=== PATIENT | female | born 1950 | race Caucasian/White ===

== ENCOUNTER 2019-08-10 09:07 | Outpatient (CLI) | payer MEDICARE, SELFPAY ==
--- NOTE | ~2019-08-10 | MM_ITS ---
EXAMINATION: MM screening michell BI w edy HISTORY: Screening mammogram TECHNIQUE: Craniocaudal and mediolateral oblique 3-D tomosynthesis images were obtained and synthetic 2-D images were generated. CAD analysis was submitted and interpreted. COMPARISON: 08/03/2018 bilateral digital screening mammogram 07/28/2017 right screening and left diagnostic mammogram and limited left breast ultrasound 07/22/2016 bilateral digital screening mammogram BREAST PARENCHYMAL COMPOSITION: The breasts are almost entirely fatty. FINDINGS: There is no evidence of suspicious mass, calcification, or architectural distortion to sugg est malignancy in either breast. There has been no suspicious interval change. IMPRESSION: 1. No mammographic evidence of malignancy. 2. Recommend routine screening mammography in one year. BI-RADS Category 1: Negative Reviewed, dictated and finalized at location A. 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
== END 2019-08-10 09:08 | disposition home or self-care (01) ==
LOC: ANHIMG 09:12
PROVIDERS: PCP Internal Medicine; Visit Provider Internal Medicine
DX: Z12.31 Encounter for screening mammogram for malignant neoplasm of breast (principal)
CPT/HCPCS: 77063; 77067

== ENCOUNTER 2020-08-17 09:06 | Outpatient (CLI) | payer MEDICARE, SELFPAY ==
--- NOTE | ~2020-08-17 | MM_ITS ---
EXAMINATION: MM screening michell BI w edy HISTORY: Screening mammogram, family history of breast cancer in her mother. TECHNIQUE: Craniocaudal and mediolateral oblique 3-D tomosynthesis images were obtained and synthetic 2-D images were generated. CAD analysis was submitted and interpreted. COMPARISON: 08/10/2019, 08/03/2018, 07/28/2018, 07/22/2016 BREAST PARENCHYMAL COMPOSITION: The breasts are almost entirely fatty. FINDINGS: There is no evidence of suspicious mass, calcification, or architectural distortion to sugg est malignancy in either breast. There has been no suspicious interval change. IMPRESSION: 1. No mammographic evidence of malignancy. 2. Recommend routine screening mammography in one year. BI-RADS Category 1: Negative Reviewed, dictated and finalized at location A. 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
== END 2020-08-17 09:07 | disposition home or self-care (01) ==
LOC: ANHIMG 09:09
PROVIDERS: PCP Internal Medicine; Visit Provider Internal Medicine
DX: Z12.31 Encounter for screening mammogram for malignant neoplasm of breast (principal)
CPT/HCPCS: 77063; 77067

== ENCOUNTER 2021-10-01 10:10 | Outpatient (CLI) | payer MEDICARE, SELFPAY ==
--- NOTE | ~2021-10-01 | MM_ITS ---
EXAMINATION: MM screening michell BI w edy HISTORY: Screening mammogram TECHNIQUE: Craniocaudal and mediolateral oblique 3-D tomosynthesis images were obtained and synthetic 2-D images were generated. CAD analysis was submitted and interpreted. COMPARISON: August 17, 2020, August 10, 2019, August 03, 2018 bilateral screening mammogram examin ations BREAST PARENCHYMAL COMPOSITION: The breasts are almost entirely fatty. FINDINGS: There is no evidence of suspicious mass, calcification, or architectural distortion to sugg est malignancy in either breast. There has been no suspicious interval change. IMPRESSION: 1. No mammographic evidence of malignancy. 2. Recommend routine screening mammography in one year. BI-RADS Category 1: Negative Reviewed, dictated and finalized at location A.
== END 2021-10-01 10:11 | disposition home or self-care (01) ==
LOC: ANHIMG 10:11
PROVIDERS: PCP Internal Medicine; Visit Provider Internal Medicine
DX: Z12.31 Encounter for screening mammogram for malignant neoplasm of breast (principal)
CPT/HCPCS: 77063; 77067

== ENCOUNTER 2022-10-02 16:36 | Outpatient (CLI) | payer MEDICARE, SELFPAY ==
--- NOTE | ~2022-10-02 | MM_ITS ---
EXAMINATION: MM screening michell BI w edy HISTORY: Screening TECHNIQUE: Craniocaudal and mediolateral oblique 3-D tomosynthesis images were obtained and synthetic 2-D images were generated. CAD analysis was submitted and interpreted. COMPARISON: Comparison to multiple prior studies sequentially, with oldest reviewed study dated 07/22. BREAST PARENCHYMAL COMPOSITION: The breasts are almost entirely fatty. FINDINGS: There is no evidence of suspicious mass, calcification, or architectural distortion to sugg est malignancy in either breast. There has been no suspicious interval change. IMPRESSION: 1. No mammographic evidence of malignancy. 2. Recommend routine screening mammography in one year. BI-RADS Category 1: Negative Reviewed, dictated and finalized at location A.
== END 2022-10-02 16:37 | disposition home or self-care (01) ==
LOC: ANHIMG 16:38
PROVIDERS: PCP Internal Medicine; Visit Provider Internal Medicine
DX: Z12.31 Encounter for screening mammogram for malignant neoplasm of breast (principal)
CPT/HCPCS: 77063; 77067

== ENCOUNTER 2023-11-10 15:17 | Outpatient (CLI) | payer MEDICARE, SELFPAY ==
--- NOTE | ~2023-11-10 | MM_ITS ---
EXAMINATION: MM screening michell BI w edy HISTORY: Screening mammogram TECHNIQUE: Craniocaudal and mediolateral oblique 3-D tomosynthesis images were obtained and synthetic 2-D images were generated. CAD analysis was submitted and interpreted. COMPARISON: 10/02/2022, 10/01/2021 bilateral screening mammogram examinations BREAST PARENCHYMAL COMPOSITION: The breasts are almost entirely fatty. FINDINGS: There is no evidence of suspicious mass, calcification, or architectural distortion to sugg est malignancy in either breast. There has been no suspicious interval change. IMPRESSION: 1. No mammographic evidence of malignancy. 2. Recommend routine screening mammography in one year. BI-RADS Category 1: Negative Reviewed, dictated and finalized at location A.
== END 2023-11-10 15:18 | disposition home or self-care (01) ==
PROVIDERS: PCP Internal Medicine; Visit Provider Family Medicine
DX: Z12.31 Encounter for screening mammogram for malignant neoplasm of breast (principal)
CPT/HCPCS: 77063; 77067

== ENCOUNTER 2024-11-18 09:57 | Outpatient (CLI) | payer MEDICARE, SELFPAY ==
--- NOTE | ~2024-11-18 | MM_ITS ---
EXAMINATION: MM screening michell BI w edy HISTORY: Screening TECHNIQUE: Craniocaudal and mediolateral oblique 3-D tomosynthesis images were obtained and synthetic 2-D images were generated. CAD analysis was submitted and interpreted. COMPARISON: Comparison to multiple prior studies sequentially, with oldest reviewed study dated 08/03. BREAST PARENCHYMAL COMPOSITION: Not dense: There are scattered areas of fibroglandular density. FINDINGS: There is no evidence of suspicious mass, calcification, or architectural distortion to sugg est malignancy in either breast. There has been no suspicious interval change. IMPRESSION: 1. No mammographic evidence of malignancy. 2. Recommend routine screening mammography in one year. BI-RADS Category 1: Negative Reviewed, dictated and finalized at location A.
--- OUTSIDE RECORDS SUMMARY | 2024-11-18 10:02 | XMS_ITS | Referral Summary ---
Author Organization [facility] al Address [address] [place] [address] Care Team Providers Care Sales Administrator Name Role Phone Jaz Palmer MD Primary Care Provider [phone] Allergies Active Allergy Reactions Criticality Noted Date Comments Cefuroxime Rash Medium 01/24/2011 Celecoxib Swelling Medium 12/30/2010 Other Other (See comments) Low 12/30/2010 Tetracycline Nausea & Vomiting Low 12/30/2010 Medications cholecalciferol (VITAMIN D-3) 2,000 unit tablet Take 1 tablet 3 times a week. Active rosuvastatin (CRESTOR) 20 mg tablet daily. Active metFORMIN (GLUCOPHAGE) 1,000 mg tablet Acti ve lisinopril (PRINIVIL,ZESTRI L) 20 mg tablet daily. 12/25/2016 Act rodger hydroCHLOROthiaz flor (MICROZIDE) 12.5 mg capsule daily. 12/25/2016 Act rodger aspirin 81 mg tablet Active ONETOUCH DELICA LANCETS 33 gauge misc USE TO CHECK BLOOD SUGAR ONCE DAILY DIRECTED. 1 12/02/2018 Active ONETOUCH ULTRA BLUE TEST STRIP strip TEST ONCE DAILY DIRECTED. 1 12/21/2018 Active metoprolol XL (TOPROL-XL) 50 mg 24 hr tablet TAKE 1 TABLET (50 MG TOTAL) BY MOUTH EVERY MORNING. 3 01/15/2019 Active glipiZIDE XL (GLUCOTROL XL) 5 mg 24 hr tablet Take 1 tablet (5 mg total) by mouth daily 03/03/2024 Active Active Problems Problem Noted Date Diagnosed Date Vitamin D deficiency 03/04/2022 Atypical chest pain 02/04/2021 History of melanoma in situ 01/01/2021 Uncontrolled type 2 diabetes mellitus with hyper glycemia 04/12/2019 Melanoma in situ right scapula(CMS/HCC) 12/25/19 19 Pancreas cyst 12/09/2017 Melanocytic nevi of trunk 11/17/2017 BMI 31.0-31.9,adult 10/16/2017 Fibroadenosis of left breast 07/22/2017 Renal mass 01/21/2017 Diabetes mellitus 12/25/2016 Hypertension 12/25/2016 Mild diastolic dysfunction 06/03/2016 Presence of stent in coronary artery 06/03/2016 Coronary artery disease invo lving [place] coronary artery of [place] heart without angina pectoris 03/26/2016 Hyperlipidemia, mixed 03/26/2016 Infectious warts 01/16/2015 Actinic keratosis 06/06/2014 Basal cell carcinoma (BCC) of back 06/06/2014 Skin neoplasm 05/02/2014 Lymphedema 05/24/2013 History of malignant melanoma of skin 01/04/2013 Malignant melanoma of skin 12/31/2010 Immunizations Immunization Administration Dates Next Due DTaP, Unspecified 06/18/2015 Influenza, Quadrivalent, Hig h Dose, Preservative Free, Intrr 06/19/2020 Influenza, Quadrivalent, Spl it, Preservative Free, Intramuscular 05/01/2023 Influenza, Trivalent, High D ose, Split, Preservative Free, Intramuscular 04/19/2018,04/17/2017 Influenza, Unspecified 04/12/2022,04/12/2019 Moderna SARS-CoV-2 Monovalent Vaccination (12+ Y RS) 09/12/2020,08/15/2020 Pneumococcal Conjugate PCV 13 07/30/2020 Pneumococcal Polysaccharide PPV23 08/05/2021 TD Preservative Free 01/01/2009 Tdap 06/18/2015 ZOSTER LIVE 06/05/2015 Social History Tobacco Use Types Packs/Day Years Used Date Smoking Tobacco: Never Smokeless Tobacco: Never Alcohol Use Standard Drinks/Week Comments No 0 (1 standard drink = 0.6 oz pur e alcohol) Comments Unknown Sex and Gender Information Value Date Recorded Sex Assigned at Not on file Legal Sex Female 6:45 AM INHALATION THERAPY AIDE Gender Identity Female 11/19/2019 7:01 PM CDT Sexual Orientation Straight 11/19/2019 7: 01 PM CDT Last Filed Vital Signs Vital Sign Reading Time Taken Comments Blood Pressure 148/69 03/28/2024 9:06 AM CDT Pulse 66 03/28/2024 9:06 AM CDT Temperature 36.1 C (97 F) 03/28/2024 9:06 AM CDT Respiratory Rate 14 03/28/2024 9:06 AM CDT Oxygen Saturation 99% 03/28/2024 9:06 AM CDT Inhaled Oxygen Concentration - - Weight 80.4 kg (177 lb 3.2 oz) 03/28/2024 9:06 A M CDT Height 162.6 cm (5' 4.03 ) 02/24/2022 9:44 AM CD T Body Mass Index 30.39 02/24/2022 9:44 AM CDT Plan of Treatment Not on file Procedures Procedure Name Priority Date/Time Associated Diagnosis Comments EGFR Routine 03/28/2024 7:32 AM CDT Malignant melanoma of skin (HCC) HEMOGLOBIN A1C After X-Ray 04/03/2017 11:43 PM CDT from Last 3 Months or Most Recently Relevant to Health Maintenance Results * eGFR (03/28/2024 7:32 AM CDT) eGFR >90 >=60 mL/min/1. 73 m2 Comment: Interpretive Data Reference Interval Normal >/= 90 mL/min/1.73m2 Mildly decreased* 60 - 89 mL/min/1.73m2 Mildly to moderately decreased 45 - 59 mL/min/1.73m2 Moderately to severely decreased 30 - 44 mL/min/1.73m2 Severely decreased 15 - 29 mL/min/1.73m2 Kidney Failure < 15 mL/min/1.73m2 *Relative to young adult level Estimated glomerular filtration rate is determined by the 2020 CKD-EPI equation recommended by the National Kidney Foundation (A Unifying Approach to GFR Estimation: Recommendations of the NKF-ASK Task Force on Reassessing the Inclusion of Race in Diagnosing Kidney Disease, JASN 202). The CKD-EPI equation should not be used for patients with unstable renal function and has not been validated in children and those over 70. Current interpretive data was last reviewed 2021. Testing performed by: [facility], [facility] [id number] Blood 03/28/2024 7:32 AM CDT 03/28/2024 7:37 AM CDT Derrek Johnson MD LAB BLOOD ORDERABLES Final Res ult Performing Organization Address [facility] [place] [address] * (ABNORMAL) Hemoglobin A1c (04/03/2017 11:43 PM CDT) Hgb A1C 6.2(H) 4.0 - 6.0 % [facility] Estimated Average Glucose 131 mg/dL [facility] Comment: The ADA recommends reporting an estimated Average Glucose (eAG) with all Hemoglobin A1c results using the equation derived from a study of 507 normal and diabetic adults. Minority populations were underrepresented and children were not included. (Diabetes Care 31:2299-6748, 2008). The eAG is not equivalent to a fasting glucose. Blood specimen (specimen) 04/03/2017 11:43 PM CDT 04/04/2017 12:17 AM CDT us Jimmie Stevens LAB BLOOD ORDERABLES Final Resul t Performing Organization Address [facility] de Phone Number [facility] [place] [address] from Last 3 Months or Most Recently Relevant to Health Maintenance Insurance MEDICARE [facility] [place] [id number] MEDICARE [facility] [place] [id number] MEDICARE [facility] Care Teams Sales Administrator Relationship Specialty [place] [address] [address] PCP - General Family Medicine 03/20/23
--- OUTSIDE RECORDS SUMMARY | 2024-11-18 10:02 | XMS_ITS | Clinical Summary ---
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 MANAGER Gender Identity Not on file Sexual Orientation Not on file Plan of Treatment Health Maintenance Due Date Last Done Comments DTAP/TDAP/TD VACCINES (1 - Tdap) 1970 BREAST CANCER SCREENING 1991 COLORECTAL SCREENING 1996 Colorectal Cancer Screening 1996 FIT-DNA Q 3 years 1996 FIT/FOBT Q 1 year 1996 Flex Sig/CT Colonography Q 5 years 1996 PNEUMOCOCCAL VACCINE 50+ YEARS (1 of 1 - PCV) 05/06/20 01 ZOSTER VACCINE (1 of 2) 2001 OSTEOPOROSIS SCREENING 2016 INFLUENZA VACCINE (#1) 2024 RSV VACCINE (60+ or ) (1 - 1-dose 75+ series) 2026 Insurance [employer] BLUE ACCESS/TRUE BLUE PPO Care Teams Career Technical Supervisor Relationship Specialty Start Date End Date Michele Greenwood MD PCP - General Internal Medicine 01/09/10
--- OUTSIDE RECORDS SUMMARY | 2024-11-18 10:02 | XMS_ITS | Encounter Summary ---
Author Organization [facility] Address [address] [place] [address] Phone Care Team Providers Care Registered Sales Assistant Name Role Phone Michele Greenwood MD Primary Care Provider Jaz Palmer MD Primary Care Provider [phone] Encounter Details Date Type Department Care Team (Latest Contact Info) Description 03/06/2011 Orders Only [facility]ETICS Scanning, Provider Social History Tobacco Use Types Packs/Day Years Used Date Smoking Tobacco: Never Assessed Comments Unknown Sex and Gender Information Value Date Recorded Sex Assigned at Not on file Legal Sex Female 6:45 AM COOKEE Gender Identity Female 11/19/2019 7:01 PM CDT Sexual Orientation Straight 11/19/2019 7: 01 PM CDT documented as of this encounter Plan of Treatment Not on file documented as of this encounter Procedures Procedure Name Priority Date/Time Associated Diagnosis Comments SCAN - PATHOLOGY 03/06/2011 documented in this encounter Results * SCAN - PATHOLOGY (03/06/2011) us Provider Scanning Final Result documented in this encounter Visit Diagnoses Not on filedocumented in this encounter Care Teams Registered Sales Assistant Relationship Specialty [place] [address] [place] [address] PCP - General 11/22/16 03/19/23 [place] [address] [place] [address] PCP - General Family Medicine 03/20/23 documented as of this encounter
--- OUTSIDE RECORDS SUMMARY | 2024-11-18 10:02 | XMS_ITS | Clinical Summary ---
Author Organization [facility] al Address [address] [place] [address] Care Team Providers Care Chemical Technician Name Role Phone Jaz Palmer MD Primary Care Provider Allergies Active Allergy Reactions Criticality Noted Date [...] artery 06/03/2016 Coronary artery disease invo lving [place] coronary artery of [place] heart without angina pectoris 03/26/2016 Hyperlipidemia, mixed [...] Free 01/01/2009 Tdap 06/18/2015 ZOSTER LIVE 06/05/2015 Surgical History Surgery Date Site/Laterality Comments ID APPENDECTOMY Appendectomy - (Added by TW Conv) ID DELIVERY ONLY Section - (Added by TW Conv) Medical History Medical History Date Comments Personal history of other ma lignant neoplasm of skin History of basal cell carcin justine of skin - (Added by TW Conv) Personal history of malignan t melanoma of skin History of malignant melanom a of skin - (Added by TW Conv) Personal history of malignan t melanoma of skin History of malignant melanom a of skin - (Added by TW Conv) Melanoma (HCC) Family History Medical History Relation Name Comments Breast cancer Mother Family history of malignant neoplasm of breast - (Added by TW Conv) Cancer Other 1 Family history of malignant neoplasm - (Added by TW Conv) Melanoma Other 2 Family history of malignant melanoma - (Added by TW Conv) Relation Name Status Comments Mother Other 1 Other 2 Social History Tobacco Use Types Packs/Day Years Used Date Smoking Tobacco: Never Smokeless Tobacco: Never Alcohol Use Standard Drinks/Week Comments No 0 (1 standard drink = 0.6 oz pur e alcohol) Comments Unknown Sex and Gender Information Value Date Recorded Sex Assigned at Not on file Legal Sex Female 6:45 AM PROGRESS CLERK Gender Identity Female 11/19/2019 7:01 PM CDT Sexual Orientation Straight 11/19/2019 7: 01 PM CDT Obstetrics History Last Filed Vital Signs Vital Sign Reading [...] 02/24/2022 9:44 AM CDT Plan of Treatment Health Maintenance Due Date Last Done Comments Albumin Creatinine Ratio, Urine 1951 Colon Cancer Screening-Colonoscopy 1951 Depression Screening 1951 Fall Risk Assessment 1950 Hepatitis C Screening 1951 Osteoporosis Screening-Bone Density Scan 1951 Dilated Eye Exam 1951 Foot Exam 1951 Hepatitis B Screening 1969 Zoster Vaccine (1 of 2) 07/31/2015 06/05/2015 Well Visit 65+ 2016 Hemoglobin A1C 10/01/2017 04/03/2017 Breast Cancer Screening-Mammogram 08/10/2020 020 Covid-19 Vaccine (2 5 season) 2024 06/26/2021, 09/12/2020, 08/15/2020 Lipid Panel 02/02/2025 02/03/2024, 04/10/2022 Influenza Vaccine (Season Ended) 2025 05/01/2023, 04/12/2022, 06/19/2020, Additional history exists eGFR 03/28/2025 03/28/2024, 03/13, 02/24/2022, Additional history exists DTaP/Tdap/Td Vaccine (3 - Td or Tdap) 06/18/2025 06/18/2015, 06/18/2015, 01/01/2009 Pneumococcal vaccine 65+ Completed 08/05/2021, 07/13 Procedures Procedure Name Priority Date/Time Associated Diagnosis [...] of Race in Diagnosing Kidney Disease, JASN 2020). The CKD-EPI equation should not be used for patients with unstable renal function and has not been validated in children and those over 70. Current interpretive data was last reviewed 2021. Testing performed by: [facility], [address] [place] [id number] Blood 03/28/2024 7:32 AM CDT 03/28/2024 7:37 AM CDT Derrek Johnson MD LAB BLOOD ORDERABLES Final Res ult Performing Organization Address [facility] de Phone Number [facility] [place] [address] * (ABNORMAL) Hemoglobin A1c (04/03/2017 11:43 PM CDT) Hgb A1C 6.2(H) 4.0 - 6.0 % [facility] Estimated Average Glucose 131 mg/dL [facility] Comment: The ADA recommends reporting an estimated Average Glucose (eAG) with all Hemoglobin A1c results using the equation derived from a study of 507 normal and diabetic adults. Minority populations were underrepresented and children were not included. (Diabetes Care 31:9403-9841, 2008). The eAG is not equivalent to a fasting glucose. Blood specimen (specimen) 04/03/2017 11:43 PM CDT 04/04/2017 12:17 AM CDT Jimmie Stevens LAB BLOOD ORDERABLES Final Resul t Performing Organization Address [facility] de Phone Number [facility] [place] [address] from Last 3 Months or Most Recently Relevant to Health Maintenance Insurance MEDICARE [facility] [place] [id number] MEDICARE [facility] MEDICARE [facility] Care Teams Chemical Technician Relationship Specialty [place] [address] [address] PCP - General Family Medicine 03/20/23
--- OUTSIDE RECORDS SUMMARY | 2024-11-18 10:02 | XMS_ITS | Encounter Summary ---
Author Organization [facility] Address [address] [place] [address] Phone Care Team Providers Care Inseam Trimming Machine Operator Name Role Phone Michele Greenwood MD Primary Care Provider Jaz Palmer MD Primary Care Provider Encounter Details Date Type Department Care Team (Late st Contact Info) Description 11/26/2017 Orders Only [facility] ProviderLeumel MD [address] [place] [id number] Social History Tobacco Use Types Packs/Day Years Used Date Smoking Tobacco: Never Comments Unknown Sex and Gender Information Value Date Recorded Sex Assigned at Not on file Legal Sex Female 6:45 AM PAN HELPER Gender Identity Female 11/19/2019 7:01 PM CDT Sexual Orientation Straight 11/19/2019 7: 01 PM CDT documented as of this encounter Plan of Treatment Not on file documented as of this encounter Procedures Procedure Name Priority Date/Time Associated Diagnosis Comments DISCHARGE LABORATORY CUMULATIVE REPORT 11/26/2017 12:00 AM CDT documented in this encounter Results * DISCHARGE LABORATORY CUMULATIVE REPORT (11/26/2017 12:00 AM CDT) Narrative 11/26/2017 12:00 AM CDT Ordered by an unspecified provider. Historical Provider LAB BLOOD ORDERABLES Nanette l Result documented in this encounter Visit Diagnoses Not on filedocumented in this encounter Care Teams Inseam Trimming Machine Operator Relationship Specialty [place] [address] [place] [address] PCP - General 11/22/16 03/19/23 [place] [address] [address] PCP - General Family Medicine 03/20/23 documented as of this encounter
--- OUTSIDE RECORDS SUMMARY | 2024-11-18 10:02 | XMS_ITS ---
Author Organization [facility] Address [address] [place] [address] Care Team Providers Care Stationary Engineer Supervisor Name Role Phone Jaz Palmer MD Primary Care Provider [phone] Active Problems Problem Noted Date Diagnosed Date [...] artery 06/03/2016 Coronary artery disease invo lving [place] coronary artery of [place] heart without angina pectoris 03/26/2016 Hyperlipidemia, mixed 03/26/2016 Infectious warts 01/16/2015 Actinic keratosis 06/06/2014 Basal cell carcinoma (BCC) of back 06/06/2014 Skin neoplasm 05/02/2014 Lymphedema 05/24/2013 History of malignant melanoma of skin 01/04/2013 Malignant melanoma of skin 12/31/2010 Current Treatment and Therapy Plans No current plan information found. Past Treatment and Therapy Plans No past plan information found. Lifetime Dose Tracking * Chemical Lifetime Dose Automatic Entry Manual Entr y DLP 6,485 mGycm 6,485 mGycm 0 mGycm
--- OUTSIDE RECORDS SUMMARY | 2024-11-18 10:02 | XMS_ITS | Encounter Summary ---
Author Organization [facility] Address [address] [place] [address] Phone Care Team Providers Care Weed Control Inspector Name Role Phone Michele Greenwood MD Primary Care Provider Jaz Palmer MD Primary Care Provider [phone] Encounter Details Date Type Department Care Team (Latest Contact Info) Description 01/09/2011 Orders Only CASE IM GENETICS Scanning, Provider Social History Tobacco Use Types Packs/Day Years Used Date Smoking Tobacco: Never Assessed Comments Unknown Sex and Gender Information Value Date Recorded Sex Assigned at Not on file Legal Sex Female 6:45 AM FIXER BOARDING ROOM Gender Identity Female 11/19/2019 7:01 PM CDT Sexual Orientation Straight 11/19/2019 7: 01 PM CDT documented as of this encounter Plan of Treatment Not on file documented as of this encounter Procedures Procedure Name Priority Date/Time Associated Diagnosis Comments SCAN - PATHOLOGY 01/09/2011 documented in this encounter Results * SCAN - PATHOLOGY (01/09/2011) us Provider Scanning Final Result documented in this encounter Visit Diagnoses Not on filedocumented in this encounter Care Teams Weed Control Inspector Relationship Specialty Start [place] [address] [place] [address] PCP - General 11/22/16 03/19/23 [place] [address] [place] [address] PCP - General Family Medicine 03/20/23 documented as of this encounter
--- OUTSIDE RECORDS SUMMARY | 2024-11-18 10:02 | XMS_ITS | Encounter Summary ---
Author Organization [facility] Address [address] [place] [address] Phone Care Team Providers Care Tea Bag Packer Name Role Phone Michele Greenwood MD Primary Care Provider Jaz Palmer MD Primary Care Provider [phone] Encounter Details Date Type Department Care Team (Latest Contact Info) Description 03/04/2012 Orders Only CASE IM GENETICS Scanning, Provider Social History Tobacco Use Types Packs/Day Years Used Date Smoking Tobacco: Never Assessed Comments Unknown Sex and Gender Information Value Date Recorded Sex Assigned at Not on file Legal Sex Female 6:45 AM [employer] Gender Identity Female 11/19/2019 7:01 PM CDT Sexual Orientation Straight 11/19/2019 7: 01 PM CDT documented as of this encounter Plan of Treatment Not on file documented as of this encounter Procedures Procedure Name Priority Date/Time Associated Diagnosis Comments SCAN - PATHOLOGY 03/04/2012 documented in this encounter Results * SCAN - PATHOLOGY (03/04/2012) us Provider Scanning Final Result documented in this encounter Visit Diagnoses Not on filedocumented in this encounter Care Teams Tea Bag Packer Relationship Specialty [place] [address] [place] [address] PCP - General 11/22/16 03/19/23 [place] [address] [place] [address] PCP - General Family Medicine 03/20/23 documented as of this encounter
== END 2024-11-18 09:58 | disposition home or self-care (01) ==
LOC: ANHIMG 09:59
PROVIDERS: PCP Family Medicine; Visit Provider Family Medicine
DX: Z12.31 Encounter for screening mammogram for malignant neoplasm of breast (principal)
CPT/HCPCS: 77063; 77067